=== PATIENT | female | born 2000 | race Caucasian/White ===

== ENCOUNTER 2024-01-20 10:04 | Outpatient (CLI) | payer SELFPAY ==
[~2024-01-20] VITALS: Ht 172.7 cm; Wt 65.6 kg
[2024-01-20] MEDS ORDERED: CELEXA 20MG20 MG/TAB PO (10:16)
[2024-01-20] MEDS ORDERED: JUNEL FE 1.5/301 TAB PO (10:17)
[2024-01-20 10:18] VITALS: BP 123/86; PULSE 54; TEMP 98.4
[2024-01-20 12:51] VITALS: BP 115/72; PULSE 47
--- NOTE | 2024-01-20 13:30 | NUR ---
PT TOLERATED RECOVERY PERIOD WELL. VS REMAINED WITHIN NORMAL LIMITS. PT FREE FROM ACUTE CONCERNS AND COMPLAINTS UPON DISCHARGE. IV DISCONTINUED. [facility].
== END 2024-01-20 13:31 | disposition home or self-care (01) ==
LOC: COL.CAR 10:04
DX: Z01.810 Encounter for preprocedural cardiovascular examination (principal)